=== PATIENT | male | born 1955 | race Caucasian/White ===

== ENCOUNTER 2017-07-09 07:30 | Inpatient (IN) | payer BC ==
[2017-07-09] MEDS ORDERED: GABAPENTIN 300 MG CAP PO ONE (08:11)
[2017-07-09] MEDS ORDERED: ceFAZolin 2 GM/SWFI 2 GM/20 ML SYR IVP ONE (08:11)
[2017-07-09] MEDS ORDERED: ACETAMINOPHEN 500 MG TAB PO ONE (08:11)
[2017-07-09] MEDS ORDERED: LR 1,000 ML IV ONE (08:12)
--- NOTE | 2017-07-09 08:13 | PDHPUP ---
History & Physical Update H&P update statement: This history and physical update is based on an assessment of the patient which was completed after admission or registration (within 24 hours), but prior to the surgery/procedure. H&P update: H&P reviewed & patient examined, no change in patient's condition since H&P completed
[2017-07-09] MEDS ORDERED: CHLORHEXIDINE GLUC HIBICLENS 118 ML BTL TP ONE (09:01)
[2017-07-09] MEDS ORDERED: BUPIVACAINE 0.25% 30 ML SDV ONE (09:01)
[2017-07-09] MEDS ORDERED: THROMBIN (BOVINE) 5,000 UNIT VIAL TP ONE (09:02)
[2017-07-09] MEDS ORDERED: BACITRACIN 50,000 UNITS/10 ML SYR IRR ONE (09:02)
[2017-07-09] MEDS ORDERED: MIDAZOLAM 2 MG/2 ML VIAL IVP ONE (09:37)
--- NOTE | 2017-07-09 09:37 | PDANEPAE ---
ANE History of Present Illness ACD&F ANE Past Medical History - Cardiovascular History Hx Hypertension: Yes Hx Arrhythmias: No Hx Chest Pain: No Hx Coronary Artery / Peripheral Vascular Disease: No Hx CHF / Valvular Disease: No Hx Palpitations: No Cardiovascular History Comment: CHILDHOOD HEART MURMUR - Pulmonary History Hx COPD: No Hx Asthma/Reactive Airway Disease: No Hx Recent Upper Respiratory Infection: No Hx Oxygen in Use at Home: No Hx Sleep Apnea: No Sleep Apnea Screening Result - Last Documented: Negative - Neurologic History Hx Cerebrovascular Accident: No Hx Seizures: No Hx Dementia: No Neurologic History Comment: HX - MIGRAINES - NONE RECENT - Endocrine History Hx Diabetes: No Hypothyroid: No Hyperthyroid: No Obesity: mild - Renal History Hx Renal Disorders: No - Liver History Hx Hepatic Disorders: No - Neurological & Psychiatric Hx Hx Neurological and Psychiatric Disorders: No - Cancer History Hx Cancer: No - Congenital Disorder History Hx Congenital Disorders: No - GI History Hx Gastrointestinal Disorders: No - Other Health History Other Health History: NEG - Chronic Pain History Chronic Pain: Yes (NECK RADIATING TO R SHOULDER) - Surgical History Prior Surgeries: L KNEE X13. L TKA 2004. LISE SHOULDER SCOPES. LISE CARPAL TUNNEL ANE Review of Systems Review of systems is: negative Review of Systems: - Exercise capacity METS (RN): 5 METS ANE Patient History - Allergies Allergies/Adverse Reactions: No Known Allergies Allergy (Unverified 06/28/17 10:40) - Home Medications Home Medications: Hydrochlorothiazide [HCTZ (*)] 12.5 mg PO DAILY 06/28/17 [Last Taken 07/09/17] Hydrocodone/Acetaminophen [[place] 5/325 (*)] 1 - 2 tab PO Q4-6PRN PRN 06/28/17 [ Last Taken 07/09/17] Metoprolol Tartrate [Lopressor 100 mg (*)] 100 mg PO BID 06/28/17 [Last Taken Unknown] - NPO status NPO Status: no food or drink >8 hours NPO Since - Liquids (Date): 07/09/17 NPO Since - Liquids (Time): 07:00 NPO Since - Solids (Date): 07/08/17 NPO Since - Solids (Time): 18:00 - Anes Hx Anes Hx: no prior problems, post operative nausea - Smoking Hx Smoking Status: Never smoked Marijuana use: No - Alcohol Use Alcohol Use: Rarely - Family Anes Hx Family Anes Hx: none Family Hx Anesthesia Complications: NEG ANE Labs/Vital Signs - Vital Signs Blood Pressure: 154/97 Heart Rate: 58 Respiratory Rate: 16 O2 Sat (%): 97 Height: 167.64 cm Weight: 92.079 kg ANE Physical Exam - Airway Neck exam: decreased ROM Mallampati Score: Class 2 - Pulmonary Pulmonary: no respiratory distress - Cardiovascular Cardiovascular: regular rate and rhythym, no murmur, rub, or gallop - ASA Status ASA Status: II ANE Anesthesia Plan Anesthesia Plan: general endotracheal anesthesia
[2017-07-09] MEDS ORDERED: DEXAMETHASONE 4 MG/ML VIAL ONE ×2 (09:48→11:20)
[2017-07-09] MEDS ORDERED: ROCURONIUM 50 MG/5 ML VIAL ONE ×2 (09:48→14:46)
[2017-07-09] MEDS ORDERED: PROPOFOL/EMULSION 500 MG/50 ML BOTTLE IV ONE ×4 (09:48→13:38)
[2017-07-09] MEDS ORDERED: PROPOFOL 200 MG/20 ML VIAL ONE (09:48)
[2017-07-09] MEDS ORDERED: fentaNYL 250 MCG/5 ML INJ ONE ×2 (09:48→11:16)
[2017-07-09] MEDS ORDERED: GLYCOPYRROLATE 0.2 MG/1 ML VIAL ONE (09:48)
[2017-07-09] MEDS ORDERED: LACTULOSE 20 GM/30 ML UDCUP PO PRN (10:49)
[2017-07-09] MEDS ORDERED: MAGNESIUM HYDROXIDE 30 ML UDCUP PO PRN (10:49)
[2017-07-09] MEDS ORDERED: BISACODYL 10 MG SUPP PR PRN (10:49)
[2017-07-09] MEDS ORDERED: ONDANSETRON DISINTEGRATING 4 MG TAB PO PRN (10:49)
[2017-07-09] MEDS ORDERED: POLYETHYLENE GLYCOL 3350 17 GM PKT PO PRN (10:49)
[2017-07-09] MEDS ORDERED: ONDANSETRON 4 MG/2 ML VIAL IVP PRN ×2 (10:49→15:28)
[2017-07-09] MEDS ORDERED: diphenhydrAMINE 25 MG CAP PO PRN (10:49)
--- NOTE | 2017-07-09 11:57 | PDMN ---
Medical Necessity Medical necessity: S320 cervical fusion anterior A-1 : INPT for multi level, 3 or more : ACDF C4/5,5/6,6/7
[2017-07-09] MEDS ORDERED: fentaNYL 100 MCG/2 ML INJ ONE ×3 (12:24→16:15)
[2017-07-09] MEDS ORDERED: ceFAZolin 2 GM/DEXTROSE 100 ML IV SCH (14:00)
[2017-07-09] MEDS ORDERED: ceFAZolin 1 GM VIAL ONE (14:16)
[2017-07-09] MEDS ORDERED: HYDROmorphONE/DILAUDID 2 MG/ML INJ ONE (14:45)
[2017-07-09] MEDS ORDERED: ONDANSETRON 4 MG/2 ML VIAL ONE (14:46)
--- NOTE | 2017-07-09 15:25 | POSTOPPROG ---
Post Op Note Date of Operation: 07/09/17 Surgeon: Jake Ramon Office Technology Instructor: Pia Aleman NP Anesthesiologist: Xavi Anesthesia: GET(General Endotracheal) Pre-op Diagnosis: Cervical Stenosis Procedure: ACDF C4-7 Inf/Abcess present in the surg proc area at time of surgery?: No EBL: 50-100 Total fluids administered: see anesthesia Complications: none Date of Surgery: 07/09/17 Post Op Day: 0 Assessment/Plan: 62 yr old s/p ACDF C4-7 for right arm pain Plan: -PT/OT/ST -Wear collar at all times -Post op xrays pending for am -Pain management -Please call neurosurgery with questions/concerns Subjective: Patient waking up in PACU Objective: Waking up in PACU PERRLA No facial droop 5/5 BUE, BLE Sensation intact to light touch BLE Dressing CDI Appropriate Neuro Check Frequency Ordered: Yes
[2017-07-09] MEDS ORDERED: NALOXONE HCL 0.4 MG/ML INJ IVP PRN (15:28)
[2017-07-09] MEDS ORDERED: HYDROmorphONE/DILAUDID 1 MG/ML INJ IVP PRN (15:28)
[2017-07-09] MEDS ORDERED: LR 500 ML IV PRN (15:28)
[2017-07-09] MEDS ORDERED: DIAZEPAM 5 MG/ML 1 ML SYR IVP PRN (15:28)
[2017-07-09] MEDS: fentaNYL 100 MCG/2 ML INJ IVP PRN ×2 (16:15→16:42)
--- NOTE | 2017-07-09 17:09 | GOP ---
[f rep st] OPERATIVE REPORT DATE OF OPERATION: 07/09/2017 SURGEON: Malissa Ramon MD NEUROSURGEON: Malissa Ramon MD. TRUCK HEADLIGHT ASSEMBLER: Pia Aleman, Nurse Practitioner. PREOPERATIVE DIAGNOSIS: Cervical spondylosis with cervical stenosis, C4-5, 5-6, 6-7. Right soft dis k herniation, C6-7. Right cervical radiculopathy. POSTOPERATIVE DIAGNOSIS: Cervical spondylosis with cervical stenosis, C4-5, 5-6, 6-7. Right soft di sk herniation, C6-7. Right cervical radiculopathy. PROCEDURE PERFORMED: Anterior cervical diskectomy with arthrodesis and decompression C4-5, 5-6, 6-7 (91516, 51915 x2); placement of biomechanical intervertebral device C4-5, 5-6, 6-7 (59094 x3); micros cope; same incision bone graft harvest; anterior cervical instrumentation 4 levels, C4, C5, C6, C7 (2 2846). FINDINGS: ESTIMATED BLOOD LOSS: 150 cc. INDICATIONS: The patient is a 62-year-old who came to see me terrible right cervicalgia and radiatin g cervical radiculopathy. An MRI of the cervical spine demonstrated spondylosis and severe foraminal stenosis and DDD at C4-5, 5-6. There was also on the right at C6-7, a soft disk herniation compress ing the right C7 nerve root. I suggested 3-level ACDF. The risk of pseudoarthrosis, adjacent segmen t disease, esophageal injury, carotid injury, recurrent laryngeal nerve injury, hoarseness, dysphagia , pseudoarthrosis, and revision surgery, as well as the possibility that his symptoms may persist anthony pite surgery. He understood all these risks and he did want to proceed. DESCRIPTION OF PROCEDURE: Patient was taken to the operating room, placed in supine position. Gener al anesthesia was begun. A midline shoulder roll was placed. His arms were tucked at the side. He was sterilely prepped and draped in usual fashion. We made a transverse incision on the left side of the neck. The subcutaneous tissue was dissected using Bovie cautery down through platysma. We used a combination of sharp and blunt dissection medial to the sternocleidomastoid, and not lateral to th e strap muscles, down to the prevertebral space. The dissection was straightforward. We shot locali zing x-rays and dissect the longus colli muscles off the spine at C4-5, 5-6, 6-7. Self-retaining ret ainer was placed. There were large bone spurs at 4-5, 5-6 and not so much at C6-7. We spent conside rable time prepping the ventral surface of the vertebral bodies for acceptance of the plate. Placed distraction pins at C6-7, and under the microscope removed the C6-7 disk and the cartilaginous endpla olamide. We then drilled and harvested subchondral bone for autologous grafting purposes, and opened the PLL and decompressed the thecal sac. There was a free disk fragment herniation on the right at C6-7 . We chose an 8 mm anatomic PTC cage from [employer]. Packed it with bony autograft and inserted it at C6-7. We then moved our distraction pins and went to C5-6. This disk was considerably degenerative. We removed the disk and the cartilaginous endplates completely. We then drilled and harvested subc hondral bone for autologous grafting purposes, and chose a 7 x 16 x 14 mm cage for that level. We op ened the PLL and decompressed the thecal sac and the neural foramina bilaterally, but we spent more t blanquita on the right-hand side than on the left. There was really very severe right foraminal stenosis. After decompression, we then placed our cage at 5-6 and then removed our distraction pins, went to C 4-5, and did likewise. Removed the disk, cartilaginous endplates, opened the posterior longitudinal ligament, decompressed the thecal sac and neural foramina bilaterally. We took a 7 mm cage, filled it with bony autograft, and inserted it at C4-C5 and had an excellent fit . We then removed our distraction pins. Chose a 59 mm plate, sized the plate, and increased the bradford dosis on the plate substantially. We placed a single screw of 4, and a single screw at C7 and they l ooked great, and we placed the remaining screws in place and locked them according to company specifi cation. We then took considerable time and investigated the entire prevertebral space for evidence o f bleeders, particularly in the longus colli muscles, and there was no evidence of any additional ble eders once we were done. We irrigated with some antibiotic saline solution, placed a little Marcaine with epinephrine over the plate itself, and then closed the incision in multiple layers using Vicryl sutures. Steri-Strips we re applied to the skin. The patient was reversed from anesthesia, extubated, and transferred to anastacia very room in stable condition. COMPLICATIONS: None. INSTRUMENTATION USED: [employer] 59 mm Zevo plate, and 15 mm screws. We used 7 x 16 x 14 anatomic PT C cages x2 and 8 x 16 x 14 cage at C6-7. /[id number]/MODL
[2017-07-09] MEDS: ACETAMINOPHEN 500 MG TAB PO SCH ×2 (18:20→21:16)
[2017-07-09] MEDS: ceFAZolin 2 GM/SWFI 2 GM/20 ML SYR IVP SCH (18:42)
[2017-07-09] MEDS: oxyCODONE IR 5 MG TAB PO PRN ×2 (18:50→23:14)
[2017-07-09] MEDS: SENNOSIDES/DOCUSATE SODIUM TAB PO SCH (21:16)
[2017-07-09] MEDS: METOPROLOL TARTRATE 100 MG TAB PO SCH (21:17)
[2017-07-09] MEDS: METHOCARBAMOL 750 MG TAB PO PRN (21:17)
[2017-07-09] MEDS: FAMOTIDINE 20 MG TAB PO SCH (21:17)
[2017-07-10] MEDS: ceFAZolin 2 GM/SWFI 2 GM/20 ML SYR IVP SCH (03:12)
[2017-07-10] MEDS: oxyCODONE IR 5 MG TAB PO PRN ×3 (03:12→12:10)
[2017-07-10] MEDS: METHOCARBAMOL 750 MG TAB PO PRN ×2 (03:12→11:22)
[2017-07-10 05:01] LABS: PLATELET COUNT 250 10^3/uL (150-400)
[2017-07-10] MEDS: ACETAMINOPHEN 500 MG TAB PO SCH (05:20)
[2017-07-10 07:46] VITALS: RESP 16
[2017-07-10] MEDS: METOPROLOL TARTRATE 100 MG TAB PO SCH (08:36)
[2017-07-10] MEDS: SENNOSIDES/DOCUSATE SODIUM TAB PO SCH (08:37)
[2017-07-10] MEDS: FAMOTIDINE 20 MG TAB PO SCH (08:37)
[2017-07-10 08:57] VITALS: O2SAT 94
[2017-07-10] MEDS ORDERED: HYDROCHLOROTHIAZIDE 12.5 MG CAP PO SCH (09:00)
[2017-07-10 11:40] VITALS: BP 114/67; PULSE 62; TEMP 98.1
--- NOTE | 2017-07-10 12:58 | NEUSURGPN ---
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 Recommend continuing to monitor Post op xrays show stable hardware C collar Incision cdi DC to home today D/w Dr Ramon Subjective: Pt resting in bed, states hand weakness is improving but has some new upper arm weakness Objective: AAOx3 NAD VSS MAEx4 Motor 5/5 BUE with exception of L deltoid 4/5, 5/5 BLE Incision cdi Collar on +LT Urinary Catheter in Place: No - Physician Discussed Patient with : Tristen Neurosurgery Physical Exam - Vitals, I&O, Labs I and O 07/09/17 07/10/17 07/11/17 05:59 05:59 06:59 Intake Total 2754 Output Total 875 Balance 1879 Weight 92.079 kg Intake: Oral (ml) 500 IV Intake (ml) 2254 Output: Urine (ml) 725 Catheter 50 Toilet 675 Estimated Blood Loss (ml) 150 Other: Number of Voids Toilet 1 Vital Signs Temp Pulse Resp BP Pulse Ox 36.7 C 62 16 114/67 94 07/10/17 11:39 07/10/17 11:39 07/10/17 11:39 07/10/17 11:39 07/10/17 11:39 Laboratory Results 07/10/17 04:11 07/10/17 04:11 ICD10 Worksheet Patient Problems: Problems Problem Status Onset Cervical stenosis of spine Acute - ICD10 Problem Qualifiers (1) Cervical stenosis of spine
--- NOTE | 2017-07-10 13:27 | ASMTLACE ---
SHANNAN Length of stay for Answers: 1 day current admission Acuity / Level of Answers: Yes Care: Did the patient have an inpatient admission? # of Emergency department Answers: 0 visits in the last 6 months Score: 4 Date Signed: 07/10/2017 01:27 PM Electronically Signed By:Dorita Escalona
--- NOTE | 2017-07-10 13:28 | ASMTCMCOM ---
CM Note CM Note Notes: Chart review for discharge planning needs. Patient is a 62 year old male s/p C4-7 ACDF. OT eval completed, no OT needs identified. Patient likely to discharge independently, CM available should status change. Date Signed: 07/10/2017 01:27 PM Electronically Signed By:Dorita Escalona
--- NOTE | 2017-07-10 15:23 | ASDISCHSUM ---
Discharge Information Plan Status:Home with No Needs Medically Cleared to Leave:07/09/2017 Discharge Date:07/10/2017 03:19 PM CM D/C Disposition:Home, Routine, Self-Care ADT D/C Disposition:Home, Routine, Self-Care Projected Discharge Date:07/10/2017 01:00 PM Transportation at D/C:Family Discharge Delay Reason: Follow-Up Date:07/10/2017 01:00 PM Discharge Slot:2 - 12:01 pm - 18:00 pm Final Diagnosis: Placement Information Patient Contact Information Contact Name:TELMA Relationship:Daughter Address: City: [facility] Phone: [facility] Code: Email: Financial Information Financial Class:HMO and PPO Plans Primary Plan Desc: OUT OF STATE PPO Primary Plan Number:[id number] Secondary Plan Desc: Secondary Plan Number: Assessment Information BC CM Progress Note CM Note CM Note Notes: Chart review for discharge planning needs. Patient is a 62 year old male s/p C4-7 ACDF. OT eval completed, no OT needs identified. Patient likely to discharge independently, CM available should status change. Date Signed: 07/10/2017 01:27 PM Electronically Signed By:Dorita Escalona LACE LACJake Length of stay for Answers: 1 day current admission Acuity / Level of Answers: Yes Care: Did the patient have an inpatient admission? # of Emergency department Answers: 0 visits in the last 6 months Score: 4 Date Signed: 07/10/2017 01:27 PM Electronically Signed By:Dorita Escalona Case Management Discharge Plan Note Case Management Discharge Discharge Order Complete? Answers: No Patient to Obtain Answers: via Family Medications Transportation Arranged Answers: Family/Friends Discharge Comments Notes: Patient discharging today, no d/c needs identified Date Signed: 07/10/2017 03:22 PM Electronically Signed By:Dorita Escalona Intervention Information
--- NOTE | 2017-07-11 14:46 | POSTANESTH ---
Post Anesthetic Evaluation Cardiovascular Status: Normal, Stable Respiratory Status: Normal, Stable Level of Consciousness/Mental Status: Can Participate in Eval Pain Control: Adequate, Prn Tx Ordered Nausea/Vomiting Control: Adequate, Prn Tx Ordered Complications Possibly Related to Anesthesia: None Noted (Seen 07/09/17 PM Doing well)
[2017-07-12] MEDS ORDERED: ENOXAPARIN 40 MG/0.4 ML SYR SC SCH (09:00)
== END 2017-07-10 15:19 | disposition home or self-care (01) | DRG 473 ==
LOC: F3N 07:51
PROVIDERS: ADMIT Neurological Surgery; ATTEND Neurological Surgery
PROC: 01N10ZZ Release Cervical Nerve, Open Approach (ICD-10-PCS; principal; 2017-07-09 10:00)
PROC: 0RT30ZZ Resection of Cervical Vertebral Disc, Open Approach (ICD-10-PCS; principal; 2017-07-09 10:00)
PROC: 0RG20A0 Fusion of 2 or more Cervical Vertebral Joints with Interbody Fusion Device, Anterior Approach, Anterior Column, Open Approach (ICD-10-PCS; principal; 2017-07-09 10:00)
DX: M47.22 Other spondylosis with radiculopathy, cervical region (principal); M50.123 Cervical disc disorder at C6-C7 level with radiculopathy; I10 Essential (primary) hypertension; G43.909 Migraine, unspecified, not intractable, without status migrainosus
CPT/HCPCS: 92610-GN; 97116-GP; 97161-GP; 97165-GO; C1713; J0171; J0690; J1100; J1170; J2250; J2405; J2704; J3010